=== PATIENT | female | born 1965 | race Caucasian/White ===

== ENCOUNTER 2017-02-26 12:17 | Day surgery (SDC) | payer OTHER ==
[2017-02-26] MEDS ORDERED: PROPOFOL 10 MG/ML VIAL IV ONE (15:39)
[2017-02-26] MEDS ORDERED: LIDOCAINE 2% MDV (20MG/ML) 20ML VIAL IV ONE (15:39)
--- NOTE | 2017-02-28 11:10 | Operative Note ---
DATE OF SURGERY: 02/26/2017 REFERRING PHYSICIAN: Jannette Reese D.O. PROCEDURE: COLONOSCOPY to the cecum. Surgeon: Hema Silverio D.O. Indication: Colorectal cancer screening. Intravenous sedation was administered by the Department of Anesthesiology and included Diprivan titrated to effect. PROCEDURE: Following informed consent from this alert individual, including a discussion of the risks and benefits of the procedure and an opportunity for the patient to ask questions, the patient was in left lateral decubitus position. A digital rectal examination was performed. No abnormalities were noted. Following this, the Olympus PCF-180 video colonoscope was inserted into the rectum without resistance. The rectal mucosa had a normal appearance with normal folds and distensibility. The colonoscope was advanced up through the bowel to the level of the cecum without much difficulty. Throughout the bowel the mucosa appeared normal, folds were normal, bowel was fairly distensible. The cecum was well defined by noting the appendiceal orifice and ileocecal valve. From the base of the cecum, the colonoscope was then withdrawn back through the bowel, re-examining the mucosa upon withdrawal. No abnormalities were noted. The colon preparation was good throughout. Retroflexion in the rectum was endoscopically unremarkable. The endoscope was straightened and removed. The patient tolerated the procedure well and was returned to the Recovery Area in stable condition. IMPRESSION: Normal colonoscopy to the cecum. RECOMMENDATIONS: The patient was advised to have recheck colonoscopy in 10 years' time or sooner should problems arise. Followup will otherwise be with Dr. Jannette Reese. As always, thank you for allowing me to participate in the care of your patient. Hema Silverio, CC: Gunnar Tompkins
== END 2017-02-26 14:45 | disposition home or self-care (01) ==
LOC: HOP 12:17
PROVIDERS: ATTEND Internal Medicine Gastroenterology
DX: Z12.11 Encounter for screening for malignant neoplasm of colon (principal)
CPT/HCPCS: 81025

== ENCOUNTER 2019-03-24 08:37 | Emergency (ER) | payer OTHER ==
[2019-03-24] MEDS ORDERED: MECLIZINE 25 MG TABLET PO ONE (08:53)
--- NOTE | 2019-03-24 08:59 | Emergency Department Record ---
History of Present Illness - General Chief Complaint: Hypertension Stated Complaint: BP Time Seen by Provider: 03/24/19 08:44 Source: Patient Mode of Arrival: Ambulatory Limitations: No limitations - History of Present Illness Initial Comments: The patient is here due to a one day hx of mild dizziness. She also was gardening yesterday and bent over and had a nosebleed. The patient decided to take her BP at home yesterday and the top number was in the 180's. She did repeat it today and it was the same. She describes the dizziness as feeling mildly off balance. There has been no RIOS, visual changes, CP, SOB, weakness, or numbness. The patient did have her blood pressure checked at her last PCP visit 6 weeks ago and the top number was in the 150's. The patient is also an active runner and has been exercising with no pain or discomfort. She normally runs 3-5 miles a day with no difficulty or discomfort. MD Complaint: Dizziness Onset/Timin -: Days(s) Timing: Unsure Description: Other History of Same: No History of Trauma: No Severity: Mild Improves With: Nothing Worsens With: Nothing Associated Symptoms: Denies other symptoms - Related Data Previous Rx's Medication Instructions Recorded Amlodipine Besylate [Norvasc] 5 mg PO DAILY #7 tab 03/24/19 Meclizine HCl [Antivert] 25 mg PO Q8H #20 tablet 03/24/19 Allergies Allergy/AdvReac Type Severity Reaction Status Date / Time meperidine [From Demerol] Allergy DIFFICULTY Verified 03/24/19 08:43 BREATHING Penicillins Allergy HIVES Verified 03/24/19 08:43 Travel Screening - Travel/Exposure Within Last 30 Days Have you traveled within the last 30 days?: No Review of Systems Constitutional: Denies: Chills, Fever Eyes: Denies: Eye discharge ENT: Denies: Congestion Respiratory: Denies: Cough, Dyspnea Cardiovascular: Denies: Chest pain Endocrine: Denies: Fatigue Gastrointestinal: Denies: Nausea Genitourinary: Denies: Dysuria Musculoskeletal: Denies: Arthralgia Skin: Denies: Bruising Past Medical History - SOCIAL HISTORY Smoking Status: Never smoker Alcohol Use: Occasional Drug Use: None - RESPIRATORY Hx Respiratory Disorders: No - CARDIOVASCULAR Hx Cardio Disorders: No - NEURO Hx Neuro Disorders: Yes Hx of Migraines: Yes - GI Hx GI Disorders: No - Hx Genitourinary Disorders: No - ENDOCRINE Hx Endocrine Disorders: No - MUSCULOSKELETAL Hx Musculoskeletal Disorders: No - PSYCH Hx Psych Problems: No - HEMATOLOGY/ONCOLOGY Hx Hematology/Oncology Disorders: No Family Medical History Any Significant Family History?: No Physical Exam - General General Appearance: Alert, Oriented x3, Cooperative, No acute distress - Head Head exam: Atraumatic, Normocephalic, Normal inspection - Eye Eye exam: Normal appearance, PERRL, EOMI - ENT ENT exam: TM's normal bilaterally Throat exam: Normal inspection. negative: Tonsillar erythema, Tonsillar exudate - Neck Neck exam: Normal inspection, Full ROM. negative: Lymphadenopathy, Tenderness - Respiratory Respiratory exam: Normal lung sounds bilaterally. negative: Respiratory distress - Cardiovascular Cardiovascular Exam: Regular rate, Normal rhythm, Normal heart sounds. negati ve: Diastolic murmur, Systolic murmur - GI/Abdominal GI/Abdominal exam: Soft, Normal bowel sounds. negative: Tenderness - Extremities Extremities exam: Normal inspection, Full ROM, Normal capillary refill. negative: Tenderness - Neurological Neurological exam: Alert, Altered, CN II-XII intact, Normal gait, Oriented X3, Other (Neg Drift and [place]omberg.). negative: Abnormal gait, Motor sensory deficit Course Vital Signs 03/24/19 08:39 Temperature 98.2 F Pulse Rate 62 Respiratory 18 Rate Blood Pressure 182/94 Pulse Ox 100 - Reevaluation(s) Reevaluation #1: The patient is doing very well at this time. Her BP has improved to 159/80 and she no longer is feeling dizzy. I did explain to her that she appears to have the onset of HTN and probably will need to be on medicine for some time. We will attempt to contact the patient's PCP to assure F/U. 03/24/19 09:56 Reevaluation #2: 2nd EKG: NSR at 46, borderline short [place] interval. Neg ST changes. RsR' pattern, normal variant. 03/24/19 10:05 Reevaluation #3: The patient is doing very well at this time. Her last BP was 153/85. I did discuss the case with DR. York who is flagstone layer for the patient's PCP and he does agree with the plan to discharge and would like her started on Norvasc. She is to F/U with her PCP later this week and also with the [facility] area. 03/24/19 10:15 Medical Decision Making - Lab Data Result diagrams: 03/24/19 08:55 03/24/19 08:55 Disposition Disposition: Discharge Clinical Impression: HTN (hypertension) Qualifiers: Hypertension type: unspecified Qualified Code(s): I10 - Essential (primary) hypertension Disposition: Home, Self-Care Condition: (2) Stable Instructions: Hypertension (ED) Additional Instructions: Please take the Norvasc as directed and also take the Antivert if needed for dizziness. Please see your family doctor for recheck later this week and also see the Cardiology [facility] in the [facility] area. Return to the ER for any worsening symptoms. Prescriptions: Meclizine HCl [Antivert] 25 mg PO Q8H #20 tablet Amlodipine Besylate [Norvasc] 5 mg PO DAILY #7 tab Referrals: [facility] [Provider Group] Forms: Patient Portal Access Time of Disposition: 10:19 Quality - Quality Measures Quality Measures: N/A - Blood Pressure Screening View Details: Yes Does Patient Have Any of the Following: No Blood Pressure Classification: Pre-Hypertensive BP Reading Systolic Measurement: 153 Diastolic Measurement: 85 Screening for High Blood Pressure: < Pre-Hypertensive BP, F/U Documented > [[id number]] Pre-Hypertensive Follow-up Interventions: Referral to alternative/primary care provider.
[2019-03-24 09:01] LABS: ABSOLUTE NEUTROPHIL COUNT 2.51; BASO % 0.7 % (0-6); EOS % 2.6 % (0-6); GRAN % 59.5 % (47-80); HEMOGLOBIN 14.6 gm/dl (11.6-16.0); LYMPH % 29.4 % (16-45); MEAN CELL VOLUME 91.3 fl (81-97); MONO % 7.8 % (0-9); PLATELET COUNT 212 K/uL (130-400); RED BLOOD COUNT 4.71 M/uL (3.80-5.40); RED CELL DISTRIBUTION WIDTH 12.1 % (11.5-14.5); WHITE BLOOD COUNT W/O DIFF 4.2 K/uL (4.2-12.2)
[2019-03-24 09:16] LABS: BLOOD UREA NITROGEN 18 mg/dL (6-20); CREATININE 0.8 mg/dL (0.5-0.9); EST GLOMERULAR FILTRATION RATE > 60 mL/min; TOTAL PROTEIN 7.4 g/dL (6.6-8.7)
[2019-03-24 09:18] LABS: GLUCOSE,RANDOM 115 mg/dL (74-109)
[2019-03-24 09:21] LABS: ALBUMIN 4.9 g/dL (4.0-5.0); ALKALINE PHOSPHATASE 93 U/L (35-104); ALT/SGPT 23 U/L (<33); AST/SGOT 31 U/L (10.0-35.0)
[2019-03-24] MEDS ORDERED: AMLODIPINE BESYLATE 5MG TAB PO SCH (10:15)
[2019-03-24] MEDS ORDERED: AMLODIPINE BESYLATE 5MG TAB PO ONE (10:18)
== END 2019-03-24 10:30 | disposition home or self-care (01) ==
LOC: ER 08:37
DX: I10 Essential (primary) hypertension (principal); R42 Dizziness and giddiness
CPT/HCPCS: 80053; 84484; 85025; 93005; 93010; 99284